=== PATIENT | female | born 2000 | race Caucasian/White ===

== ENCOUNTER 2021-04-08 06:58 | Inpatient (IN) ==
[2021-04-08] MEDS ORDERED: Naloxone 0.4 MG/ML INJ IVP PRN (07:30)
[2021-04-08] MEDS ORDERED: Ringers Solution, Lactated 1,000 ML IVC SCH (07:30)
[2021-04-08] MEDS ORDERED: Famotidine 20 MG/2 ML VIAL IVP PRN (07:30)
[2021-04-08] MEDS ORDERED: Metoclopramide 10 MG/2 ML VIAL IVP PRN (07:30)
[2021-04-08] MEDS ORDERED: miSOPROStoL 25 MCG TABLET VG PRN (07:30)
[2021-04-08] MEDS ORDERED: EPHEDrine 50 MG/ML VIAL IVP PRN (07:49)
[2021-04-08] MEDS ORDERED: Epidural Premix (fent/bupiv) 110 ML EP SCH (08:00)
[2021-04-08 08:38] LABS: Basophils % 0.5 %; Eosinophils # 0.1 K/mcL (0.0-0.6); Eosinophils % 1.7 %; Hemoglobin 8.6 g/dL (11.5-15.4); Immature Granulocytes % 0.8 % (0-4); Lymphocytes # 1.6 K/mcL (0.6-4.6); Lymphocytes % 20.6 %; Mean Corpuscular HGB Conc 29.7 g/dL (31.6-35.5); Mean Corpuscular Hemoglobin 22.8 pg (28.0-33.3); Mean Corpuscular Volume 76.7 fL (83.0-100.0); Monocytes # 0.9 K/mcL (0.0-1.3); Monocytes % 12.3 %; Neutrophils # 4.8 K/mcL (1.6-8.9); Platelet Count 438 K/mcL (140-400); Red Blood Count 3.78 M/mcL (3.82-4.97); Red Cell Distribution Width 15.4 % (11.5-14.5); Segmented Neutrophils % 64.1 %; White Blood Count 7.5 K/mcL (4.3-11.1)
[2021-04-08 08:47] LABS: Amphetamine Screen,Urine Negative ng/mL (Cutoff=1000); Barbiturate Screen,Urine Negative ng/mL (Cutoff=200); Benzodiazepines Screen,Urine Negative ng/mL (Cutoff=200); Cannabinoid Screen,Urine Negative ng/mL (Cutoff = 50); Cocaine Screen,Urine Negative ng/mL (Cutoff= 300); Opiate Screen,Urine Negative ng/mL (Cutoff=300); Phencyclidine Screen,Urine Negative ng/mL (Cutoff=25)
[2021-04-08 09:18] LABS: Influenza A PCR Negative (Negative); Influenza B PCR Negative (Negative); Resp. Syncytial Virus PCR Negative (Negative)
[2021-04-08 09:19] LABS: SARS-CoV-2 by PCR (In House) Negative (Negative)
[2021-04-08] MEDS ORDERED: *HR* Nalbuphine 10 MG/ML AMPUL IV PRN (09:59)
[2021-04-08] MEDS ORDERED: miSOPROStoL 25 MCG TABLET PO PRN (13:33)
[2021-04-08] MEDS ORDERED: Oxytocin 20 units/ LR 1000 mL 20 UNIT/1,000 ML BAG IVC ONE (18:25)
[2021-04-08] MEDS ORDERED: Ondansetron 4 MG/2 ML VIAL IM ONE (18:37)
[2021-04-08] MEDS ORDERED: Ondansetron 4 MG/2 ML VIAL ONE (18:39)
[2021-04-08] MEDS ORDERED: Lidocaine 1% 20 ML MDV ONE (18:56)
[2021-04-08] MEDS ORDERED: Rho Immune Globulin 1,500 UNIT SYRINGE IM PRN (20:32)
[2021-04-08] MEDS ORDERED: Measles/Mumps/Rubella Vacc 0.5 ML VIAL SQ PRN (20:32)
[2021-04-08] MEDS ORDERED: Ondansetron ODT 4 MG TAB.RAPDIS SL PRN (20:32)
[2021-04-08] MEDS ORDERED: Lanolin 7 G OINT...G. TP PRN (20:32)
[2021-04-08] MEDS ORDERED: *HR* HYDROcodone/Acet 5/325 mg TABLET PO PRN (20:32)
[2021-04-08] MEDS ORDERED: Oxytocin 20 units/ LR 1000 mL 20 UNIT/1,000 ML BAG IVC SCH (20:32)
[2021-04-08] MEDS ORDERED: Benzocaine/Menthol 56 GM AEROSOL SPRAY TP PRN (20:32)
[2021-04-08] MEDS: Acetaminophen 325 MG TABLET PO SCH (22:39)
[2021-04-09 00:15] VITALS: O2SAT 98
[2021-04-09] MEDS: Ibuprofen 600 MG TABLET PO SCH ×2 (00:33→09:11)
[2021-04-09] MEDS: Acetaminophen 325 MG TABLET PO SCH (02:39)
[2021-04-09 05:37] LABS: Basophils % 0.2 %; Eosinophils % 0.2 %; Hemoglobin 8.1 g/dL (11.5-15.4); Immature Granulocytes % 0.5 % (0-4); Lymphocytes # 1.7 K/mcL (0.6-4.6); Lymphocytes % 14.4 %; Mean Corpuscular Hemoglobin 22.9 pg (28.0-33.3); Mean Corpuscular Volume 76.3 fL (83.0-100.0); Mean Platelet Volume 9.2 fL (9.4-12.4); Monocytes # 1.7 K/mcL (0.0-1.3); Monocytes % 13.9 %; Neutrophils # 8.4 K/mcL (1.6-8.9); Platelet Count 386 K/mcL (140-400); Red Blood Count 3.54 M/mcL (3.82-4.97); Red Cell Distribution Width 15.3 % (11.5-14.5); Segmented Neutrophils % 70.8 %
[2021-04-09 05:40] LABS: White Blood Count 11.9 K/mcL (4.3-11.1)
[2021-04-09 08:24] VITALS: BP 115/73; PULSE 107; TEMP 98
[2021-04-09] MEDS ORDERED: Prenatal Vit/FA 1 EACH TABLET PO SCH (09:00)
== END 2021-04-09 12:15 | disposition home or self-care (01) | DRG 560 ==
LOC: 1NENULAB 06:58 → 1NENUOBS 22:17
PROVIDERS: ADMIT Obstetrics & Gynecology; ATTEND Obstetrics & Gynecology